=== PATIENT | female | born 1950 | race Caucasian/White ===

== ENCOUNTER 2021-03-16 17:48 | Inpatient (IN) | payer OTHER, MEDICAID, SELFPAY ==
[~2021-03-16] VITALS: Ht 162.6 cm; Wt 64.0 kg
[2021-03-16 17:48] VITALS: BP_SYST 185
--- NOTE | 2021-03-16 17:50 | NUR ---
BROUGHT IN BY [facility], PLACED IN BED #6 AND TRIAGED. REPORT GIVEN TO JANET
[2021-03-16] MEDS ORDERED: KETOROLAC TROMETHAMINE 30 MG VIAL IVP ONE (18:30)
[2021-03-16] MEDS ORDERED: VANCOMYCIN HCL 1,000 MG in NS 250 ML IV ONE (18:30)
[2021-03-16] MEDS ORDERED: PIPERACILLIN/TAZO 3.375 GM in NS 50 ML IV ONE (18:30)
[2021-03-16] MEDS ORDERED: ACETAMINOPHEN 500 MG TABLET PO ONE (18:30)
[2021-03-16] MEDS ORDERED: NACL 0.9% 1,000 ML IV ONE ×2 (18:30→18:45)
--- NOTE | 2021-03-16 18:30 | NUR ---
DR DODSON IN TO ASSESS
--- NOTE | 2021-03-16 18:43 | NUR ---
LABS OBTAINED, TOLERATED WELL, NO DISTRESS
[2021-03-16 19:04] LABS: BASOPHILS # (AUTO) 0.1 K/uL (0.0-0.2); BASOPHILS % (AUTO) 0.5 % (0.0-2.0); HEMATOCRIT 39.2 % (36-48); HEMOGLOBIN 13.6 g/dL (12.0-16.0); LYMPHOCYTES % (AUTO) 7.7 % (20.5-51.5); MEAN CORPUSCULAR HEMOGLOBIN 31 pg (27-31); MEAN CORPUSCULAR HGB CONC 35 % (32-36); MEAN CORPUSCULAR VOLUME 88 fL (79.0-98.0); MONOCYTES % (AUTO) 7.7 % (1.7-9.3); NEUTROPHILS # (AUTO) 11.2 K/uL (1.8-7.7); NEUTROPHILS % (AUTO) 84.1 % (40.0-70.0); PLATELET COUNT (AUTO) 213 K/uL (130-430); RED BLOOD CELL COUNT(AUTO) 4.47 MIL/uL (4.2-6.2); RED CELL DISTRIBUTION WIDTH 12.6 % (9.0-15.0); WHITE BLOOD COUNT (AUTO) 13.3 K/uL (4.8-10.8)
[2021-03-16] MEDS ORDERED: VANCOMYCIN HCL 1000 MG/VIAL IV ONE (19:11)
[2021-03-16] MEDS ORDERED: PIPERACILLIN/TAZOBACTAM 3.375 GM/VIAL (ZOSYN) IV ONE (19:12)
--- NOTE | 2021-03-16 19:14 | NUR ---
Received report from DANIEL Valera and continue care of patient.
[2021-03-16 19:54] LABS: ANION GAP 9 (5-15); CALCIUM 9.4 mg/dL (8.4-11.0); CHLORIDE 93 mmol/L (98-107); GLUCOSE 308 mg/dL (70-99); POTASSIUM 3.4 mmol/L (3.5-5.1); SODIUM SERUM 130 mmol/L (136-145); UREA NITROGEN, BLOOD 16 mg/dL (8-21)
[2021-03-16 19:59] LABS: GFR AFRICAN AMERICAN 91 mL/min (>90)
[2021-03-16 20:07] LABS: ALANINE AMINOTRANSFERASE 27 U/L (12-78); ALBUMIN 3.2 g/dL (3.4-4.8); ASPARTATE AMINOTRANSFERASE 24 U/L (10-37); TOTAL BILIRUBIN 0.3 mg/dL (0.0-1.0)
--- NOTE | 2021-03-16 20:20 | NUR ---
COVID-19 swabs collected and sent to lab.
--- NOTE | 2021-03-16 21:20 | NUR ---
Assisted patient to bedside commode.
[2021-03-16 21:24] LABS: BILIRUBIN,URINE NEGATIVE (NEGATIVE); BLOOD, URINE 1+ (NEGATIVE); CLARITY/URINE CLEAR (CLEAR); COLOR,URINE YELLOW (YELLOW); GLUCOSE,URINE 3+ (NEGATIVE); KETONES,URINE 1+ (NEGATIVE); LEUKOCYTE ESTERASE ,URINE NEGATIVE (NEGATIVE); NITRITE, URINE NEGATIVE (NEGATIVE); PROTEIN URINE 1+ (NEGATIVE); UROBILINOGEN,URINE 0.2 (0.2-1.0)
[2021-03-16] MEDS ORDERED: INSULIN NPH/REGULAR 70-30, 100 UNITS/ML, 10 ML VIAL SUBCUT ONE (22:00)
[2021-03-16 22:22] LABS: BACTERIA,URINE FEW /HPF (None Seen); WBC,URINE 0-3 /HPF (0-3)
[2021-03-16 22:23] LABS: YEAST,URINE Few /HPF (None Seen)
--- NOTE | 2021-03-16 22:36 | NUR ---
Patient resting quietly. No acute distress noted. Vital signs within normal range.
--- NOTE | 2021-03-16 23:23 | NUR ---
COVID (PCR) and Flu swabs collected and sent to lab.
--- NOTE | 2021-03-16 23:35 | NUR ---
Patient will be admitted to care of Dr. Murrell. Admitted to MS unit. Will go to room 121B. Belongings list completed. Complete and up to date summary report printed. SBAR report to be given at bedside with opportunity for questions.
[2021-03-17 00:20] VITALS: BP_SYST 124
[2021-03-17] MEDS: NACL 0.9% 1,000 ML IV SCH ×3 (00:59→23:15)
--- NOTE | 2021-03-17 04:05 | NUR ---
Pt admitted from ED via gurney, no acute distress noted, pt made comfortable in bed and oriented to room and use of call light, explained plan of care and policies with pt, VS wnl, BS 199, pt is hungry and requesting food, given a couple crackers and jello, explained to pt that she will be on a diabetic diet which includes low carbs. Pt explains that she does not check her BS at home because she does not want to poke herself, she states she eats a lot of bread as well. Pt will need a lot of education, she lives at home alone but her son lives down the street. Pt is comfortable at this time, all needs met. Will continue to monitor to end of shift. Call light in reach, bed low and locked.
--- NOTE | 2021-03-17 06:38 | NUR ---
Moved pt from 121b to 119b, all belongings with her. Pt suddenly became aggressive and started yelling stating she wants to leave. She is unable to remember very recent events, and is saying that things happened which did not actually happen. She is very urge incontinent almost having no control over her bladder at all. She was cleaned and changed twice. She reassured and able to calm down but still is saying she wants to leave, she has no sense of time. She is currently in bed resting.
--- NOTE | 2021-03-17 07:18 | NUR ---
HIGH ALERT NOTE: Called back at identified within the medical roster to verify physician authenticity.
[2021-03-17 07:26] LABS: BASOPHILS # (AUTO) 0.1 K/uL (0.0-0.2); BASOPHILS % (AUTO) 0.5 % (0.0-2.0); EOSINOPHILS % (AUTO) 0.1 % (0.0-4.0); HEMATOCRIT 35.7 % (36-48); LYMPHOCYTES # (AUTO) 0.7 K/uL (1.0-5.5); LYMPHOCYTES % (AUTO) 6.3 % (20.5-51.5); MEAN CORPUSCULAR HEMOGLOBIN 30 pg (27-31); MEAN CORPUSCULAR HGB CONC 34 % (32-36); MEAN CORPUSCULAR VOLUME 89 fL (79.0-98.0); MONOCYTES # (AUTO) 1.3 K/uL (0.0-1.0); MONOCYTES % (AUTO) 11.5 % (1.7-9.3); NEUTROPHILS % (AUTO) 81.6 % (40.0-70.0); PLATELET COUNT (AUTO) 200 K/uL (130-430); RED BLOOD CELL COUNT(AUTO) 4.03 MIL/uL (4.2-6.2); RED CELL DISTRIBUTION WIDTH 12.2 % (9.0-15.0)
[2021-03-17] MEDS ORDERED: MORPHINE 2 MG/ML INJ. SYRINGE IVP ONE (07:30)
[2021-03-17] MEDS: INSULIN REGULAR, HUMAN 100 UNITS/ML, 10 ML VIAL (humuLIN R) SUBCUT PRN ×4 (07:45→21:46)
--- NOTE | 2021-03-17 08:00 | NUR ---
OPENING NOTES AWAKE, ALERT TO NAME AND PLACE ONLY. NO SHORTNESS OF BREATH ON ROOM AIR. DENIES ANY PAIN. IV FLUID INFUSING WELL ON LEFT HAND. PLAN OF CARE DISCUSSED WITH PATIENT, SHE AGREED. PATIENT SAID SHE WILL REMIND HER SON TO BRING THE LIST OF HER HOME MEDS. SAFETY CHECKS DONE. CALL LIGHT WITHIN REACH. WILL MONITOR.
[2021-03-17 08:04] VITALS: BP_SYST 156
[2021-03-17 08:23] LABS: ALBUMIN 2.4 g/dL (3.4-4.8); CALCIUM 8.3 mg/dL (8.4-11.0); CREATININE 0.58 mg/dL (0.55-1.30); POTASSIUM 3.1 mmol/L (3.5-5.1); TOTAL BILIRUBIN 0.2 mg/dL (0.0-1.0)
[2021-03-17 09:09] LABS: CALCIUM 8.4 mg/dL (8.4-11.0); CREATININE 0.56 mg/dL (0.55-1.30); POTASSIUM 3.1 mmol/L (3.5-5.1)
[2021-03-17] MEDS ORDERED: POTASSIUM CHLORIDE 20 MEQ TAB.PRT.SR PO ONE (11:15)
[2021-03-17 13:06] VITALS: BP_SYST 145
[2021-03-17 13:43] LABS: ACETONE, SERUM NEGATIVE (NEGATIVE)
[2021-03-17 17:04] VITALS: BP_SYST 150
[2021-03-17] MEDS ORDERED: GABAPENTIN 100 MG CAPSULE PO ONE (21:00)
[2021-03-17 21:36] VITALS: BP_SYST 142
[2021-03-17] MEDS: ACETAMINOPHEN 325 MG TABLET PO PRN (21:39)
[2021-03-18 00:30] VITALS: BP_SYST 110
--- NOTE | 2021-03-18 01:53 | NUR ---
CONSULTATION PAGED/CALLED Reason for Consultation: SEPSIS Person Who was Notified: TERESITA Consulting Physician: RENETTA SPAIN IS [employer] Consultant Specialty: Ordering Physician: ARMEN
[2021-03-18 09:34] VITALS: BP_SYST 149
[2021-03-18 11:06] LABS: BASOPHILS # (AUTO) 0.1 K/uL (0.0-0.2); BASOPHILS % (AUTO) 0.6 % (0.0-2.0); EOSINOPHILS # (AUTO) 0.1 K/uL (0.0-0.4); EOSINOPHILS % (AUTO) 0.6 % (0.0-4.0); HEMOGLOBIN 12.5 g/dL (12.0-16.0); LYMPHOCYTES % (AUTO) 10.9 % (20.5-51.5); MEAN CORPUSCULAR HEMOGLOBIN 31 pg (27-31); MEAN CORPUSCULAR HGB CONC 35 % (32-36); MEAN CORPUSCULAR VOLUME 89 fL (79.0-98.0); MONOCYTES % (AUTO) 10.5 % (1.7-9.3); NEUTROPHILS # (AUTO) 7.3 K/uL (1.8-7.7); NEUTROPHILS % (AUTO) 77.4 % (40.0-70.0); PLATELET COUNT (AUTO) 224 K/uL (130-430); RED BLOOD CELL COUNT(AUTO) 4.05 MIL/uL (4.2-6.2); RED CELL DISTRIBUTION WIDTH 12.9 % (9.0-15.0); WHITE BLOOD COUNT (AUTO) 9.4 K/uL (4.8-10.8)
[2021-03-18 11:51] LABS: ALBUMIN 2.2 g/dL (3.4-4.8); CALCIUM 8.5 mg/dL (8.4-11.0); CREATININE 0.65 mg/dL (0.55-1.30); POTASSIUM 3.5 mmol/L (3.5-5.1); TOTAL BILIRUBIN 0.3 mg/dL (0.0-1.0)
[2021-03-18 12:00] VITALS: BP_SYST 135
[2021-03-18] MEDS: NACL 0.9% 1,000 ML IV SCH ×2 (13:04→21:53)
[2021-03-18] MEDS: INSULIN REGULAR, HUMAN 100 UNITS/ML, 10 ML VIAL (humuLIN R) SUBCUT PRN ×3 (13:07→21:55)
[2021-03-18] MEDS: FLUCONAZOLE 100 mg/ NS 50 ML IV SCH (13:10)
--- NOTE | 2021-03-18 14:27 | NUR ---
DR AYERS CALLED FOR BLOOD SUGAR 435 MG/DL. AWAITING TO CALL BACK.
[2021-03-18 16:04] VITALS: BP_SYST 139
--- NOTE | 2021-03-18 16:13 | NUR ---
DR ALLISON CALLED AND MADE ORDER FOR TYLENOL PO AND INCREASE MORPHINE TO 4 MG IV FROM 3 MG IV EVERY 4 HOURS. Addendum: 03/18/21 at 1615 by Jess Goetz RN DR ALLISON CALLED FOR HI BLOOD SUGAR. NOT TYLENOL PO AND MORPHINE IV
--- NOTE | 2021-03-18 16:21 | NUR ---
LATEST BS 290 MG/DL COVERAGE GIVEN
[2021-03-18 20:00] VITALS: BP_SYST 141
[2021-03-18] MEDS: ACETAMINOPHEN 325 MG TABLET PO PRN (21:56)
--- NOTE | 2021-03-18 22:15 | NUR ---
TYLENOL 650 MG po administer for acute pain , off loading with pillows used & helpful .
[2021-03-19 01:00] VITALS: BP_SYST 137
--- NOTE | 2021-03-19 03:08 | NUR ---
Hourly Rounding patient Resting HOB elevated call jj given to patient comfort measures implemented FALL MEASURES IN PLACE / .
[2021-03-19] MEDS: INSULIN REGULAR, HUMAN 100 UNITS/ML, 10 ML VIAL (humuLIN R) SUBCUT PRN ×2 (05:48→12:05)
[2021-03-19 06:52] LABS: BASOPHILS % (AUTO) 0.7 % (0.0-2.0); EOSINOPHILS # (AUTO) 0.2 K/uL (0.0-0.4); EOSINOPHILS % (AUTO) 3.2 % (0.0-4.0); HEMATOCRIT 35.1 % (36-48); LYMPHOCYTES # (AUTO) 1.9 K/uL (1.0-5.5); LYMPHOCYTES % (AUTO) 27.1 % (20.5-51.5); MEAN CORPUSCULAR HEMOGLOBIN 30 pg (27-31); MEAN CORPUSCULAR HGB CONC 34 % (32-36); MEAN CORPUSCULAR VOLUME 89 fL (79.0-98.0); MONOCYTES % (AUTO) 14.3 % (1.7-9.3); NEUTROPHILS # (AUTO) 3.8 K/uL (1.8-7.7); NEUTROPHILS % (AUTO) 54.7 % (40.0-70.0); PLATELET COUNT (AUTO) 252 K/uL (130-430); RED BLOOD CELL COUNT(AUTO) 3.95 MIL/uL (4.2-6.2); RED CELL DISTRIBUTION WIDTH 12.8 % (9.0-15.0); WHITE BLOOD COUNT (AUTO) 6.9 K/uL (4.8-10.8)
--- NOTE | 2021-03-19 08:00 | NUR ---
NOTES PATIENT AAOX 4. VITALS SIGNS STABLE. AFEBRILE. LUNGS BILATERALLY CLEAR. ABDOMEN SOFT AND NON DISTENDED. HAS IV ACCESS ON THE RT FOREARM #20. WITH NS AT 80CC/HR INFUSING ON WELL. VERBALIZED WANTS TO SLEEP AND REST NOT ABLE TO SLEEP GOOD AT NITE DUE TO ROOMMATE ON BED A LOTS OF BOWEL MOVEMENT AND LOTS OF SMELL IN THE ROOM. CALL LIGHTS WITHIN REACH. BED LOW POSITION, ALARMED AND LOCKED. WILL CONTINUE
--- NOTE | 2021-03-19 09:00 | NUR ---
NO DUE MEDS GIVEN. RESTING AT THIS TIME.
[2021-03-19 09:50] VITALS: BP_SYST 137
[2021-03-19 10:20] LABS: ALBUMIN 2.1 g/dL (3.4-4.8); CALCIUM 8.2 mg/dL (8.4-11.0); CREATININE 0.69 mg/dL (0.55-1.30); POTASSIUM 3.1 mmol/L (3.5-5.1); TOTAL BILIRUBIN 0.1 mg/dL (0.0-1.0)
--- NOTE | 2021-03-19 10:24 | NUR ---
Nutrition Update Adal Scale 18 noted. Pt admitted for ALOC. Diet: cardiac BMI: 24.2 kg/m2 RD to follow per nutrition care standards.
[2021-03-19] MEDS: FLUCONAZOLE 100 mg/ NS 50 ML IV SCH (11:00)
--- NOTE | 2021-03-19 12:00 | NUR ---
LATEST BS 276 MG/DL. COVERAGE GIVEN. AND PATIENT HAD LUNCH BEFORE BEING DISCHARGE TO HOME DISCHARGE SUMMARY GIVEN BY ALEXSANDRA SANCHEZ.
[2021-03-19 12:01] VITALS: BP_SYST 155
[2021-03-19 12:05] VITALS: BP_SYST 130
[2021-03-19] MEDS ORDERED: LEVO750T45 PO (12:27)
[2021-03-19] MEDS ORDERED: DIF100 PO (12:28)
--- NOTE | 2021-03-19 12:55 | NUR ---
PATIENT DISCHARGED Patient given medication reconciliation form and D/C instructions. Exit Care explained and provided. Patient and patient's son aLz verbalized their understanding. MD discussed with patient the results and treatment provided. Ambulatory with steady gait for discharge to home. Patient in stable condition, ID band removed. IV catheter removed, intact and dressing applied, no active bleeding. Rx of Levaquin and Diflucan explained and given. Patient educated on pain management. All belongings sent with patient. Patient left floor via wheelchair to private vehicle in no distress.
== END 2021-03-19 12:55 | disposition home or self-care (01) | DRG 871 ==
LOC: SED 17:48 → SMU 22:04
PROVIDERS: ADMIT Internal Medicine Hospice and Palliative Medicine; ATTEND Internal Medicine Hospice and Palliative Medicine
DX: A41.9 Sepsis, unspecified organism (principal); J18.0 Bronchopneumonia, unspecified organism; Z20.822 Contact with and (suspected) exposure to COVID-19; E11.65 Type 2 diabetes mellitus with hyperglycemia; R82.71 Bacteriuria; E87.6 Hypokalemia; I10 Essential (primary) hypertension; Z83.3 Family history of diabetes mellitus; Z90.710 Acquired absence of both cervix and uterus
CPT/HCPCS: 36415; 71045; 80048; 80053; 81000; 82009; 82962; 83605; 83930; 84484; 85025; 86710; 87040-TC; J0696; J1450; J1815; J1885; J2270; J2543; J3370; J7060